=== PATIENT | female | born 1970 | race Two or more races ===

== ENCOUNTER 2021-02-06 11:03 | Outpatient (REF) | payer OTHER, SELFPAY ==
[2021-02-06 11:53] LABS: Basophils Absolute Auto 0.1 X10*3/uL (0.0-0.2); Basophils Percent Auto 1.2 % (0-2); Imm Gran Abs Auto 0.01 X10*3/uL (0.00-0.03); Imm Gran Pct Auto 0.2 % (0.0-0.4); Red Blood Count 5.18 X10*6/uL (4.20-5.50)
[2021-02-06 11:55] LABS: Eosinophils Absolute Auto 0.1 X10*3/uL (0.0-0.4); Eosinophils Percent Auto 2.7 % (0-4); Hematocrit 34.6 % (37-47); Hemoglobin 10.3 g/dl (12.0-16.0); Lymphocytes Absolute Auto 1.9 X10*3/uL (1.2-4.9); Lymphocytes Percent Auto 36.9 % (20-40); Mean Corpuscular HGB Conc 29.8 g/dl (31.0-35.0); Mean Corpuscular Hemoglobin 19.9 pg (27.0-33.0); Mean Corpuscular Volume 66.8 fL (80-98); Mean Platelet Volume 10.6 fL (9.4-12.3); Monocytes Absolute Auto 0.4 X10*3/uL (0.1-1.2); Monocytes Percent Auto 8.3 % (2-11); Neutrophils Absolute Auto 2.6 X10*3/uL (2.0-8.3); Neutrophils Percent Auto 50.7 % (45-73); Platelet Count 329 X10*3/uL (160-400); Red Cell Distribution Width 19.8 % (11.0-16.0); White Blood Count 5.2 X10*3/uL (4.8-10.8)
[2021-02-06 12:01] LABS: MANUAL DIFF FLAG NO
[2021-02-06 12:37] LABS: Anion Gap 10 (12-20); Blood Urea Nitrogen 14 mg/dL (9-16); Calcium 9.2 mg/dL (8.4-10.2); Carbon Dioxide 27 mmol/L (22-29); Chloride 104 mmol/L (96-108); Cholesterol 215 mg/dL; Estimated Glomerular Filt Rate > 60; Glucose Fasting 93 mg/dL (60-99); HDL Cholesterol 65 mg/dL; LDL Cholesterol Calculated 137 mg/dl; Potassium 4.4 mmol/L (3.3-5.1); Sodium 137 mmol/L (135-145); Triglycerides 67 mg/dL
== END 2021-02-06 11:04 | disposition home or self-care (01) ==
LOC: HO.LAB 11:03
PROVIDERS: PCP Nurse Practitioner Family; Visit Provider Nurse Practitioner Family
DX: Z00.00 Encounter for general adult medical examination without abnormal findings (principal)
CPT/HCPCS: 36415; 80048; 80061; 85025

== ENCOUNTER → 2021-02-27 15:31 | Outpatient (BNVA) | payer OTHER, SELFPAY | PROVIDERS: PCP Nurse Practitioner Family; Visit Provider Surgery ==

== ENCOUNTER 2021-04-10 12:41 | Outpatient (REF) | payer OTHER, SELFPAY ==
[2021-04-10 12:46] VITALS: BP 137/72; PULSE 62; RESP 16; TEMP 36.4; O2SAT 97
[2021-04-10 12:47] VITALS: BMI 26.2
--- NOTE | 2021-04-10 13:19 | W.PM.OPN ---
Operative Note Operative Note Date of Service: 04/10/21 Narrative: Preop diagnosis: Scalp cyst Postop diagnosis: Scalp cyst Procedure: Excision of scalp cyst under local anesthesia Surgeon Dr. Mayur Arzate The patient is a 50-year-old female who was seen in the office because of a scalp cyst. This was about 3.3 cm in diameter. This was located at the occipital area. She understood technique of excision under local anesthesia. She was aware of the risks, benefits and alternatives. She was brought to the minor procedure room. She was placed supine. The area of the cyst was prepped and draped. Lidocaine 1% was used for local anesthesia. I infiltrated the planned line of incision using blade 15. This was carried down through the full-thickness of the skin and part of subcutaneous layer until the cyst capsule was visualized. I sharply dissected the cyst capsule off of the rest of subcutaneous layer using Metzenbaum scissors all the way posteriorly to excise the entire cyst. This was sent as specimen. I irrigated the area of excision. I closed the incision with full-thickness nylon 3 0 interrupted sutures and vertical mattress sutures for eversion. The patient tolerated procedure well. No complication noted. Estimated blood loss about 2 cc . Patient was discharged with wound care instructions and will be seen in the office for removal sutures in about 2 weeks.
[2021-04-10 13:21] VITALS: BP 126/72; PULSE 62; RESP 16; O2SAT 98
--- NOTE | 2021-04-10 13:49 | MHC.SHP ---
Pre-Procedural Eval Section B Chief Complaint: Scalp Mass Allergies: Allergies Allergy/AdvReac Type Severity Reaction Status Date / Time No Known Allergies Allergy Verified 02/27/21 15:38 Plan I have reviewed the history and physical and performed a pertinent physical examination on my patient. No changes have occurred unless specified.
== END 2021-04-10 12:42 | disposition home or self-care (01) ==
LOC: HO.MS 12:41
PROVIDERS: PCP Nurse Practitioner Family; Visit Provider Surgery
PROC: (CPT 11424; principal; 2021-04-10 13:00)
DX: L72.11 Pilar cyst (principal)
CPT/HCPCS: 11424; 88304

== ENCOUNTER → 2021-04-21 12:49 | Outpatient (BNVA) | payer OTHER, SELFPAY | PROVIDERS: PCP Nurse Practitioner Family; Referring Provider Nurse Practitioner Family; Visit Provider Surgery ==

== ENCOUNTER 2021-12-17 15:05 | Outpatient (REF) | payer OTHER, SELFPAY ==
[2021-12-18 06:55] LABS: CT PCR NOT DETECTED (Not Detect.); NG PCR NOT DETECTED (Not Detect.)
[2021-12-18 12:15] LABS: BV Int Neg Control Negative (Negative); BV Int Pos Control Positive (Positive)
== END 2021-12-17 15:06 | disposition home or self-care (01) ==
LOC: HO.LAB 15:05
PROVIDERS: PCP Internal Medicine; Visit Provider Advanced Practice Midwife
DX: N89.8 Other specified noninflammatory disorders of vagina (principal); N92.0 Excessive and frequent menstruation with regular cycle; Z20.2 Contact with and (suspected) exposure to infections with a predominantly sexual mode of transmission
CPT/HCPCS: 87480; 87491; 87510; 87591; 87660

== ENCOUNTER 2022-01-31 09:08 | Outpatient (REF) | payer OTHER, SELFPAY ==
--- NOTE | ~2022-01-31 | MM_ITS ---
EXAMINATION: MM SCREENING DIGITAL BREAST TOMOSYNTHESIS, BILATERAL CLINICAL INFORMATION: Screening. Asymptomatic. Age 51. No prior breast imaging. No known family history breast cancer. The lifetime risk of breast cancer based on the Tyrer-Cuzick Model is 8%. COMPARISON: None (current study represents initial baseline exam). TECHNIQUE: Digital breast tomosynthesis is performed in both the craniocaudal and mediolateral oblique views along with computer-aided detection (CAD). Synthesized 2D images are generated from the tomosynthesis. FINDINGS: There are scattered areas of fibroglandular density (ACR BI-RADS breast composition Category b). There are no significant masses, abnormal calcifications, or other abnormalities. The axilla and skin contours are unremarkable. MM/MM tomosynthesis screening BI IMPRESSION: No mammographic evidence of malignancy. ASSESSMENT: BI-RADS 1: Negative RECOMMENDATION: Routine annual mammography screening. This patient's information was entered into a reminder system with a target due date for their next mammogram.
[2022-01-31 10:15] LABS: MANUAL DIFF FLAG NO
[2022-01-31 11:20] LABS: Basophils Absolute Auto 0.1 X10*3/uL (0.0-0.2); Basophils Percent Auto 0.9 % (0-2); Eosinophils Absolute Auto 0.4 X10*3/uL (0.0-0.4); Eosinophils Percent Auto 6.2 % (0-4); Hematocrit 36.4 % (37.0-47.0); Hemoglobin 11.3 g/dl (12.0-16.0); Imm Gran Abs Auto 0.02 X10*3/uL (0.00-0.03); Imm Gran Pct Auto 0.4 % (0.0-0.4); Lymphocytes Absolute Auto 1.6 X10*3/uL (1.2-4.9); Lymphocytes Percent Auto 28.2 % (20-40); Mean Corpuscular Hemoglobin 25.3 pg (27.0-33.0); Mean Corpuscular Volume 81.4 fL (80.0-98.0); Mean Platelet Volume 11.4 fL (9.4-12.3); Monocytes Absolute Auto 0.5 X10*3/uL (0.1-1.2); Monocytes Percent Auto 8.3 % (2-11); Neutrophils Absolute Auto 3.2 x10*3/uL (2.0-8.3); Platelet Count 385 X10*3/uL (160-400); Red Blood Count 4.47 X10*6/uL (4.20-5.50); Red Cell Distribution Width 16.3 % (11.0-16.0); White Blood Count 5.7 X10*3/uL (4.8-10.8)
[2022-01-31 11:37] LABS: Alanine Aminotransferase 17 U/L (0-31); Albumin Level 4.1 g/dL (3.5-5.0); Alkaline Phosphatase 76 U/L (39-117); Anion Gap 9 (12-20); Aspartate Amino Transferase 23 U/L (5-31); Bilirubin Total 0.2 mg/dL (0.0-1.0); Blood Urea Nitrogen 13 mg/dL (9-16); Calcium 9.1 mg/dL (8.4-10.2); Carbon Dioxide 28 mmol/L (22-29); Chloride 106 mmol/L (96-108); Cholesterol 198 mg/dL; Estimated Glomerular Filt Rate > 60; Glucose Fasting 86 mg/dL (60-99); HDL Cholesterol 68 mg/dL; LDL Cholesterol Calculated 120 mg/dl; Sodium 138 mmol/L (135-145); Total Protein 6.8 g/dL (6.5-8.0); Triglycerides 52 mg/dL
[2022-01-31 11:57] LABS: Thyroid Stimulating Hormone 1.06 uIU/mL (0.32-4.0)
[2022-02-05 05:06] LABS: Vitamin D 25-OH, D2 <4 ng/mL; Vitamin D 25-OH, D3 14 ng/mL; Vitamin D 25-OH, Total 14 ng/mL (30-100)
== END 2022-01-31 09:09 | disposition home or self-care (01) ==
LOC: HO.MAMMO 09:08
PROVIDERS: Nurse Practitioner Family; Absent Provider Internal Medicine; PCP Internal Medicine; Referring Provider Advanced Practice Midwife; Visit Provider Nurse Practitioner Family
DX: N92.1 Excessive and frequent menstruation with irregular cycle (principal); E78.5 Hyperlipidemia, unspecified; E55.9 Vitamin D deficiency, unspecified; E78.00 Pure hypercholesterolemia, unspecified; R22.0 Localized swelling, mass and lump, head; Z12.31 Encounter for screening mammogram for malignant neoplasm of breast
CPT/HCPCS: 36415; 77063; 77067; 80053; 80061; 82306; 84443; 85025; 85027

== ENCOUNTER 2022-03-09 15:07 | Outpatient (REF) | payer OTHER, SELFPAY ==
--- NOTE | ~2022-03-09 | US_ITS ---
EXAMINATION: US PELVIS CLINICAL INFORMATION: Excessive and frequent menstruation with regular cycles COMPARISON: None TECHNIQUE: Ultrasound of the pelvis is performed using both transabdominal and transvaginal transducers along with Doppler. Transvaginal imaging is performed due to inadequate visualization transabdominally. FINDINGS: The uterus is anteverted and retroflexed and measures 12 x 4.9 x 6.3 cm in dimension. No focal uterine lesion is seen. Endometrial thickness is normal measuring 0.8 cm. There are nabothian cysts in the cervix. The largest measures 1.7 x 1.3 x 2 cm. The ovaries are normal. The right ovary measures 2.5 x 1.1 x 1.6 cm. The left ovary measures 2.9 x 1.5 x 1.7 cm. There is a small amount of fluid in the pelvis. US/US pelvic and transvaginal IMPRESSION: Normal uterus and ovaries. Nabothian cysts in the cervix.
== END 2022-03-09 15:08 | disposition home or self-care (01) ==
LOC: HO.US 15:07
PROVIDERS: PCP Internal Medicine; Visit Provider Advanced Practice Midwife
DX: N92.0 Excessive and frequent menstruation with regular cycle (principal)
CPT/HCPCS: 76830; 76856

== ENCOUNTER 2022-03-19 14:52 | Outpatient (REF) | payer OTHER, SELFPAY ==
[2022-03-25 09:36] LABS: HPV mRNA E6/E7 rflx Not Detected (Not Detected)
== END 2022-03-19 14:53 | disposition home or self-care (01) ==
LOC: HO.LAB 14:52
PROVIDERS: PCP Internal Medicine; Visit Provider Advanced Practice Midwife
DX: Z01.411 Encounter for gynecological examination (general) (routine) with abnormal findings (principal); Z11.51 Encounter for screening for human papillomavirus (HPV); N76.0 Acute vaginitis; B96.89 Other specified bacterial agents as the cause of diseases classified elsewhere
CPT/HCPCS: 81025; 87624; 88142

== ENCOUNTER → 2022-04-01 14:53 | Outpatient (BNVA) | payer OTHER, SELFPAY | PROVIDERS: PCP Internal Medicine; Visit Provider Advanced Practice Midwife | DX: N92.0 Excessive and frequent menstruation with regular cycle (principal) | CPT/HCPCS: 81025 ==

== ENCOUNTER 2022-05-23 08:00 | Outpatient (REF) | payer OTHER, SELFPAY ==
[2022-05-23 08:12] LABS: MANUAL DIFF FLAG NO
[2022-05-23 08:36] LABS: Basophils Absolute Auto 0.1 X10*3/uL (0.0-0.2); Basophils Percent Auto 0.9 % (0-2); Eosinophils Absolute Auto 0.4 X10*3/uL (0.0-0.4); Eosinophils Percent Auto 7.5 % (0-4); Hematocrit 35.7 % (37.0-47.0); Hemoglobin 11.3 g/dl (12.0-16.0); Imm Gran Abs Auto 0.02 X10*3/uL (0.00-0.03); Imm Gran Pct Auto 0.4 % (0.0-0.4); Lymphocytes Absolute Auto 1.5 X10*3/uL (1.2-4.9); Lymphocytes Percent Auto 28.5 % (20-40); Mean Corpuscular HGB Conc 31.7 g/dl (31.0-35.0); Mean Corpuscular Hemoglobin 23.7 pg (27.0-33.0); Mean Platelet Volume 10.8 fL (9.4-12.3); Monocytes Absolute Auto 0.5 X10*3/uL (0.1-1.2); Monocytes Percent Auto 9.1 % (2-11); Neutrophils Absolute Auto 2.9 x10*3/uL (2.0-8.3); Neutrophils Percent Auto 53.6 % (45-73); Platelet Count 362 X10*3/uL (160-400); Red Blood Count 4.76 X10*6/uL (4.20-5.50); Red Cell Distribution Width 19.4 % (11.0-16.0); White Blood Count 5.4 X10*3/uL (4.8-10.8)
[2022-05-23 08:56] LABS: Prothrombin Time 10.9 SEC (9.9-13.0)
[2022-05-23 09:20] LABS: Alanine Aminotransferase 16 U/L (0-31); Albumin Level 4.1 g/dL (3.5-5.0); Alkaline Phosphatase 65 U/L (39-117); Anion Gap 10 (12-20); Aspartate Amino Transferase 18 U/L (5-31); Bilirubin Total 0.3 mg/dL (0.0-1.0); Blood Urea Nitrogen 10 mg/dL (9-16); Calcium 9.3 mg/dL (8.4-10.2); Carbon Dioxide 28 mmol/L (22-29); Chloride 105 mmol/L (96-108); Cholesterol 232 mg/dL; Estimated Glomerular Filt Rate > 60; Glucose Fasting 96 mg/dL (60-99); HDL Cholesterol 65 mg/dL; LDL Cholesterol Calculated 144 mg/dl; Potassium 4.8 mmol/L (3.3-5.1); Sodium 138 mmol/L (135-145); Triglycerides 115 mg/dL
[2022-05-23 09:41] LABS: Free T4 (Free Thyroxine) 0.88 ng/dL (0.71-1.85); Thyroid Stimulating Hormone 1.92 uIU/mL (0.32-4.0)
[2022-05-23 10:22] LABS: Estimated Average Glucose 103 mg/dL; Hemoglobin A1C 100.5353 umol/L; Hemoglobin A1c % 5.2 %
== END 2022-05-23 08:01 | disposition home or self-care (01) ==
LOC: HO.LAB 08:00
PROVIDERS: PCP Internal Medicine; Visit Provider Internal Medicine
DX: Z00.00 Encounter for general adult medical examination without abnormal findings (principal); E78.5 Hyperlipidemia, unspecified; N92.1 Excessive and frequent menstruation with irregular cycle
CPT/HCPCS: 36415; 80053; 80061; 83036; 84439; 84443; 85025; 85610

== ENCOUNTER → 2022-05-27 11:57 | Outpatient (REF) | payer OTHER, SELFPAY ==
--- NOTE | 2022-05-27 12:03 | ECG_ITS ---
Test Reason : z01.818 preop Blood Pressure : / mmHG Vent. Rate : 062 BPM Atrial Rate : 062 BPM P-R Int : 116 ms QRS Dur : 084 ms QT Int : 402 ms P-R-T Axes : 051 047 031 degrees QTc Int : 408 ms Normal sinus rhythm Cannot rule out Anterior infarct , age undetermined - could be from body habitus and lead placement Otherwise normal ECG No previous ECGs available Referred By: Hedy Barker Electronically Signed By:ANNE-MARIE NG
== END ==
LOC: HO.CARD 11:57
PROVIDERS: PCP Internal Medicine; Visit Provider Nurse Practitioner Family
DX: Z01.818 Encounter for other preprocedural examination (principal)
CPT/HCPCS: 93005

== ENCOUNTER → 2022-05-28 12:52 | Outpatient (REF) | payer OTHER, SELFPAY ==
--- NOTE | 2022-05-28 12:57 | ECG_ITS ---
Test Reason : PREOP Blood Pressure : / mmHG Vent. Rate : 065 BPM Atrial Rate : 065 BPM P-R Int : 124 ms QRS Dur : 088 ms QT Int : 398 ms P-R-T Axes : 058 052 032 degrees QTc Int : 413 ms Normal sinus rhythm Normal ECG When compared with ECG of 27-MAY-2022 12:03, No significant change was found Referred By: Hedy Barker Electronically Signed By:ANNE-MARIE NG
== END ==
LOC: HO.CARD 12:52
PROVIDERS: Visit Provider Nurse Practitioner Family
DX: Z01.818 Encounter for other preprocedural examination (principal)
CPT/HCPCS: 93005

== ENCOUNTER 2023-03-23 08:48 | Outpatient (REF) | payer OTHER, SELFPAY | END 2023-03-23 08:49 | disposition home or self-care (01) | LOC: HO.LNP 08:48 | PROVIDERS: PCP Internal Medicine; Visit Provider Advanced Practice Midwife | DX: Z13.89 Encounter for screening for other disorder (principal) ==

== ENCOUNTER 2023-03-23 09:12 | Outpatient (REF) | payer OTHER, SELFPAY ==
[2023-03-23 14:44] LABS: CT PCR NOT DETECTED (Not Detect.); NG PCR NOT DETECTED (Not Detect.)
[2023-03-24 09:55] LABS: BV Int Neg Control Negative (Negative); BV Int Pos Control Positive (Positive)
== END 2023-03-23 09:13 | disposition home or self-care (01) ==
LOC: HO.LAB 09:12
PROVIDERS: Visit Provider Advanced Practice Midwife
DX: N89.8 Other specified noninflammatory disorders of vagina (principal); Z20.2 Contact with and (suspected) exposure to infections with a predominantly sexual mode of transmission
CPT/HCPCS: 0353U; 87480; 87510; 87660

== ENCOUNTER 2023-05-08 08:06 | Outpatient (REF) | payer OTHER, SELFPAY ==
--- NOTE | ~2023-05-08 | MM_ITS ---
EXAMINATION: MM SCREENING DIGITAL BREAST TOMOSYNTHESIS, BILATERAL CLINICAL INFORMATION: Screening. Asymptomatic. The lifetime risk of breast cancer based on the Tyrer-Cuzick Model is 8%. COMPARISON: Mammography: 01/31/2022 (baseline) TECHNIQUE: Digital breast tomosynthesis is performed in both the craniocaudal and mediolateral oblique views along with computer-aided detection (CAD). Synthesized 2D images are generated from the tomosynthesis. FINDINGS: There are scattered areas of fibroglandular density (ACR BI-RADS breast composition Category b). The breasts are symmetrically smaller suggesting systemic weight loss from prior imaging. The breasts demonstrate no architectural abnormality or abnormal calcifications. The axilla and skin contours are unremarkable. Right breast has nodular asymmetric density posterior central 5:00 position near posterior film margin medial to posterior nipple line 7.5 cm from nipple. Patient will be recalled for additional imaging. MM/MM tomosynthesis screening BI IMPRESSION: Right: -Asymmetric density posterocentral breast just medial and inferior to posterior nipple line, 7.5 cm from nipple. Left: - No mammographic evidence of malignancy. ASSESSMENT: BI-RADS 0: Incomplete - Need Additional Imaging Evaluation RECOMMENDATION: 1. Additional views right breast: Spot CC, spot MLO. 2. Targeted ultrasound if warranted after review of the additional views. 3. Radiology department staff will contact the patient for additional imaging. This patient's information was entered into a reminder system with a target due date for their next mammogram.
== END 2023-05-08 08:07 | disposition home or self-care (01) ==
LOC: HO.MAMMO 08:06
PROVIDERS: PCP Internal Medicine; Visit Provider Internal Medicine
DX: Z12.31 Encounter for screening mammogram for malignant neoplasm of breast (principal)
CPT/HCPCS: 77063; 77067

== ENCOUNTER 2023-05-12 07:49 | Outpatient (REF) | payer OTHER, SELFPAY ==
--- NOTE | ~2023-05-12 | MM_ITS ---
EXAMINATION: MM DIAGNOSTIC DIGITAL BREAST TOMOSYNTHESIS, RIGHT CLINICAL INFORMATION: Recall from screening for asymmetric density posterior central right breast. Bilateral mastopexy since prior imaging 2021. COMPARISON: Mammography: 05/08/2023, 01/31/2022 (baseline). TECHNIQUE: Digital breast tomosynthesis is performed. 2D images are generated from the tomosynthesis. The following views are obtained: Spot CC, spot MLO x2. FINDINGS: There are scattered areas of fibroglandular density (ACR BI-RADS breast composition Category b). Additional views demonstrate stromal changes from 2021 which are consistent with the mastopexy. There is no significant mass or suspicious architectural change. A follow-up right mammography in 6 months will be requested to allow for reassessment and exclude remote possibility of an occult developing density. Results are discussed with the patient at time of visit. MM/MM tomosynthesis added views R IMPRESSION: Additional views demonstrate postsurgical changes consistent with the mastopexy. A follow-up right mammography in 6 months will be requested to allow for reassessment and exclude remote possibility of an occult developing density. ASSESSMENT: BI-RADS 3: Probably Benign RECOMMENDATION: Diagnostic right mammography in 6 months. This patient's information was entered into a reminder system with a target due date for their next mammogram.
== END 2023-05-12 07:50 | disposition home or self-care (01) ==
LOC: HO.MAMMO 07:49
PROVIDERS: PCP Internal Medicine; Visit Provider Internal Medicine
DX: R92.2 Inconclusive mammogram (principal)
CPT/HCPCS: 77061; 77065

== ENCOUNTER 2023-05-19 09:32 | Outpatient (REF) | payer OTHER, SELFPAY | END 2023-05-19 09:33 | disposition home or self-care (01) | LOC: HO.LNP 09:32 | PROVIDERS: PCP Internal Medicine; Visit Provider Obstetrics & Gynecology | DX: N93.9 Abnormal uterine and vaginal bleeding, unspecified (principal); Z32.02 Encounter for pregnancy test, result negative | CPT/HCPCS: 58100; 81025; 88305 ==

== ENCOUNTER 2023-06-08 13:41 | Outpatient (AMB) | payer OTHER, SELFPAY ==
--- NOTE | 2023-06-08 13:44 | MHC.OFFVIS ---
Intake Vital Signs 06/08/23 13:53 Height 4 ft 11 in Weight 125 lb 10.616 oz BMI 25.4 BP 116/74 Intake Visit Reasons: Pre op for Hyst D&C/130 arrival Product Development Consultant Required: Yes Product Development Consultant Language: Religious Educator Name: Kassi VEGA Information Interpreted: non-clinical & clinical Construction Assistant: Construction Assistant Present Accompanied by: Self / Same As Patient Allergies No Known Allergies Allergy (Verified 06/08/23 13:54) Is last menstrual period known: Yes Last menstrual period: 09/26/20 Post menopausal: No Patient : No Do you need a note to return to daycare/school/sports/work: Yes (for surgery on wednesday) HPI HPI Comments History of Present Illness Details Presenting for follow-up doing well with no complaints. The pathology on endometrial biopsy showed the following: Endometrium, biopsy:? Benign weakly proliferative endometrium with chronic endometritis and breakdown, and fragments suggestive of benign endometrial polyps; no atypia or carcinoma.? Comment:? Polyps may cause chronic endometritis. FOR[facility]LY [facility], [facility] Medical History Abnormal menses Head lump Hypovitaminosis D Iron deficiency anemia Physical exam Pure hypercholesterolemia Scalp mass Surgical History History of section History of removal of cyst Family History Father ETOH abuse Amputation of leg Diabetes Substance use disorder Mother Myocardial infarction Stroke Heart valve replaced Brother Thyroiditis Son In good health Son In good health Son In good health Paternal Uncle Breast cancer Social History Housing: House Alcohol intake: current Alcohol intake frequency: a few times a month Alcohol type: wine and hard liquor Patient Tobacco Use Status: Former Tobacco user Tobacco use type: Cigarette e-Cigarette/Vaping Use: Never Used Second Hand Smoke Exposure: No Patient : No service: No Current occupational status: employed Current occupational exposures/hazards: No Cognitive needs: No Hearing needs: No Vision needs: No Female Reproductive History Menstrual Date of last menstrual period: 09/26/20 Total pregnancies: 2 Full term: 2 Review of Systems Card Reports as per HPI and Reports no additional complaints Resp Reports as per HPI and Reports no additional complaints GI Reports as per HPI and Reports no additional complaints Reports as per HPI Physical Exam Vital Signs: Last Vital Signs BP 116/74 06/08/23 13:53 BMI result Body Mass Index 25.4 Const General: cooperative, healthy appearing and comfortable Chest Chest palpation & inspection: normal inspection of the chest and normal palpation of entire chest wall Breast/axilla inspection: normal inspection of the breasts and normal inspection of the axillae Breast/axilla palpation: normal palpation of the breasts, normal palpation of the axillae and no axillary lymphadenopathy Resp Effort & Inspection: normal respiratory effort Auscultation: clear to auscultation bilaterally Percussion: percussion normal Cardio Palpation: normal PMI Rate: regular rate Rhythm: regular rhythm Heart sounds: no murmurs and no rubs Peripheral pulses: Peripheral pulses 2+ throughout GI Inspection: Yes normal to inspection Palpation (GI): Soft to palpation, nontender, no guarding, not rigid and No hepatosplenomegaly present Percussion: Yes normal to percussion Auscultation: normal bowel sounds Rectal Exam - Female: deferred Assessment & Plan Assessment & Plan (1) Abnormal uterine bleeding: Comment: Endometrial polyp on EMB pathology Code(s): N93.9 - Abnormal uterine and vaginal bleeding, unspecified Plan: Discussed with the patient the results the EMB pathology showing endometrial polyp. Recommended hysteroscopy D&C possible polypectomy/myomectomy. Discussed with the patient the procedure , all benefits and risks including but not limited to inability to complete the procedure , bleeding, infection, possible need for blood transfusion with all its risk ( HIV,syphilis, Hepatitis, anaphylaxis shock, others..), injury to bladder, rectum, possible need for laparoscopy/laparotomy or hysterectomy. The patient verbalized understanding and signed the consent. Instructions given the patient to schedule a 2 week postoperative appointment Coding Level of Care Code Est Pt Level 3 (14538) Diagnoses Abnormal uterine bleeding N93.9
[2023-06-08 13:53] VITALS: BP 116/74; BMI 25.4
== END 2023-06-08 14:08 | disposition home or self-care (01) ==
LOC: HO.HWS 13:41
PROVIDERS: PCP Internal Medicine; Visit Provider Obstetrics & Gynecology
DX: N93.9 Abnormal uterine and vaginal bleeding, unspecified (principal)
CPT/HCPCS: 99213

== ENCOUNTER → 2023-06-08 13:41 | Outpatient (BNVA) | payer OTHER, SELFPAY | PROVIDERS: PCP Internal Medicine; Visit Provider Obstetrics & Gynecology ==

== ENCOUNTER → 2023-07-09 10:30 | Day surgery (SDC) | payer OTHER, SELFPAY ==
[2023-06-22 10:40] VITALS: BMI 25.4
--- NOTE | 2023-06-24 10:57 | P.CONAN_ITS ---
Documented by User: Eugenia Polanco NP 07/05/23 11:52 HPI - Anesthesia Eval Consult details Narrative: 52yo F for D&C Hysteroscopy,poss myomectomy/polypectomy, 07/09/23 [facility] Active Problems Active Problems: All Active Problems (Updated 06/08/23 @ 13:57 by Aram Beasley MD) Abnormal uterine bleeding (Acute) Urinary tract infection (Acute) Overweight (BMI 25.0-29.9) (Acute) Asthma (Acute) Pre-op evaluation (Acute) Physical exam (Acute) Encounter for annual routine gynecological examination (Acute) Bacterial vaginosis (Acute) Encounter to discuss test results (Acute) Hypovitaminosis D (Acute) Abnormal menses (Acute) Pure hypercholesterolemia (Acute) Iron deficiency anemia (Acute) Scalp mass (Acute) Head lump (Acute) Annual physical exam (Acute) Past Medical History Medical History Abnormal menses Head lump Hypovitaminosis D Iron deficiency anemia Physical exam Pure hypercholesterolemia Scalp mass Family History Family History Father ETOH abuse Amputation of leg Diabetes Substance use disorder Mother Myocardial infarction Stroke Heart valve replaced Brother Thyroiditis Son In good health Son In good health Son In good health Paternal Uncle Breast cancer Surgical History Surgical History History of section History of removal of cyst Social History Social History Housing: House Alcohol intake: current Alcohol intake frequency: does not drink Alcohol type: wine and hard liquor Patient Tobacco Use Status: Former Tobacco user Tobacco use type: Cigarette e-Cigarette/Vaping Use: Never Used Second Hand Smoke Exposure: No Use of substances other than those prescribed or required for medical reasons: No Are you DNR?: No Advance Directives: No Advance Directives Information Provided: Yes Advance Directives on File: No service: No Current occupational status: employed Current occupational exposures/hazards: No Cognitive needs: No Hearing needs: No Vision needs: No Meds Allergies Allergy/AdvReac Type Severity Reaction Status Date / Time No Known Allergies Allergy Verified 06/08/23 13:54 Exam Exam Date and Time: June 24, 2023 1057 Height,Weight and Vital Signs: Height 4 ft 11 in Weight 57 kg Assessment and Plan Assessment Anesthesia Assessment: Chart Reviewed Documented by User: Jinny Cobos MD 07/09/23 12:18 [facility] Active Problems Active Problems: All Active Problems (Updated 07/09/23 @ 10:36 by Jinny Cobos MD) Abnormal uterine bleeding (Acute) Urinary tract infection (Acute) Overweight (BMI 25.0-29.9) (Acute) Asthma (Acute) Pre-op evaluation (Acute) Physical exam (Acute) Encounter for annual routine gynecological examination (Acute) Bacterial vaginosis (Acute) Encounter to discuss test results (Acute) Hypovitaminosis D (Acute) Abnormal menses (Acute) Pure hypercholesterolemia (Acute) Iron deficiency anemia (Acute) Scalp mass (Acute) Head lump (Acute) Annual physical exam (Acute) Past Medical History Medical History Abnormal menses Head lump Hypovitaminosis D Iron deficiency anemia Physical exam Pure hypercholesterolemia Scalp mass Family History Family History Father ETOH abuse Amputation of leg Diabetes Substance use disorder Mother Myocardial infarction Stroke Heart valve replaced Brother Thyroiditis Son In good health Son In good health Son In good health Paternal Uncle Breast cancer Family history of problems with anesthesia: No Surgical History Surgical History History of section History of removal of cyst History of Problems with Anesthesia: No Social History Social History Housing: House Alcohol intake: current Alcohol intake frequency: does not drink Alcohol type: wine and hard liquor Patient Tobacco Use Status: Former Tobacco user Tobacco use type: Cigarette e-Cigarette/Vaping Use: Never Used Second Hand Smoke Exposure: No Use of substances other than those prescribed or required for medical reasons: No Are you DNR?: No Advance Directives: No Advance Directives Information Provided: Yes Advance Directives on File: No service: No Current occupational status: employed Current occupational exposures/hazards: No Cognitive needs: No Hearing needs: No Vision needs: No Meds Allergies Allergy/AdvReac Type Severity Reaction Status Date / Time No Known Allergies Allergy Verified 06/08/23 13:54 Exam Height,Weight and Vital Signs: Height 4 ft 11 in Weight 57 kg Vital Signs Temp Pulse Resp BP Pulse Ox O2 Del Method 07/09/23 11:08 98.9 F 73 16 108/65 99 Room Air Pertinent Lab Results Pertinent Lab Results: Lab Results 07/09/23 Range/Units 10:40 Urine Test NEGATIVE (NEGATIVE) Narrative Narrative: Patient a little fidgety. Was drinking water in waiting area approx. 40z @ 10:35am.States son told her to keep drinking as needed to produce urine sample. Explained complicatons of continuing to eat or drink edward-op. Patient also asking why she needs General anesthesia. Explained to her that case was booked as such by Dr Beasley and she could talk to Dr Beasley regarding if case could be done with local or MAC but she declined to do that and stated that GA was fine if booked by Dr Beasley. Airway Mallampati Class: I TM Dist: >3cm Neck ROM: Full Loose/Missing/Broken Teeth: No (Denies broken, loose teeth) Heart: RRR Lungs: CTAB Assessment and Plan Assessment Anesthesia Assessment: Anesthesia Plan Discussed Final Anesthetic Review Family History of Problems with Anesthesia: No History of Problems with Anesthesia: No NPO: No (4oz water in waiting area) ASA Class: II Final Preanesthetic Review: No Changes in Pt Med Stat, Meds/Allgs Chart Reviewed, Consent Obtained/Reviewed and Anes Risks/Benef Reviewed Patient Risk: Intermediate Procedure Risk: Low Assessment/Block/Sedation in SS: Assess/Block/Sedation-SS Anesthetic Plan Anesthetic Plan: GA Disposition: Standard PACU
[2023-07-09 10:57] LABS: Urine Pregnancy NEGATIVE (NEGATIVE)
[2023-07-09 10:58] LABS: UPreg QC Valid YES
[2023-07-09 11:08] VITALS: BP 108/65; PULSE 73; RESP 16; TEMP 37.2; O2SAT 99
[2023-07-09] MEDS: Lactated Ringers 1,000 ML 100 ML IVCONT (11:15)
--- NOTE | 2023-07-09 11:18 | MHC.SHP ---
Pre-Procedural Eval Section A Date of Service: 07/09/23 The patient is an INPATIENT: No Changes since office visit: No Cold of Flu in the past 2 weeks, No New Medical Problems, No Changes in Medication and No Patient answered all questions The History & Physical has been completed within 30 days and I have reviewed it.: Yes Section B Chief Complaint: Abnormal uterine and vaginal bleeding, unspecified Allergies: Allergies Allergy/AdvReac Type Severity Reaction Status Date / Time No Known Allergies Allergy Verified 06/08/23 13:54 Plan Diagnosis/Plan: Unchanged I have reviewed the history and physical and performed a pertinent physical examination on my patient. No changes have occurred unless specified. Time Spent With Patient Time: Total time managing care of this patient today ____ minutes.
[2023-07-09] MEDS: Metoclopramide HCl 10 MG/2 ML VIAL IVPUSH (11:26)
--- NOTE | 2023-07-09 11:53 | PC.NURSE ---
patient asked to use the bathroom and upon return to bed 2 patient states I don't want to do this, i want to go . patient encouraged to stay but refuses, took tele monitor off and requesting IV to be removed, closed curtain and got dressed. IV removed by Elsy Chavez FAMILY MEMBER CARETAKER. Dr. Beasley aware.
== END ==
PROVIDERS: Nurse Practitioner; PCP Internal Medicine; Visit Provider Obstetrics & Gynecology
DX: N93.9 Abnormal uterine and vaginal bleeding, unspecified (principal); Z53.20 Procedure and treatment not carried out because of patient's decision for unspecified reasons
CPT/HCPCS: 81025; J1100; J2250; J2405; J2765

== ENCOUNTER 2023-07-14 10:00 | Outpatient (AMB) | payer OTHER, SELFPAY ==
--- NOTE | 2023-07-14 10:01 | A.OFFVIS_ITS ---
Intake Intake Visit Reasons: follow up Organic Gardening Teacher Required: Yes Organic Gardening Teacher Language: Print Shop Manager Name: Kassi Hoyt Allergies No Known Allergies Allergy (Verified 07/14/23 10:03) HPI HPI Comments History of Present Illness Details Presenting for follow-up, the patient was scheduled for hysteroscopy D& C, possible polypectomy/myomectomy and got anxious and decided to leave without proceeding with the procedure. Last endometrial biopsy pathology showed the following: The pathology on endometrial biopsy showed the following: Endometrium, biopsy:? Benign weakly proliferative endometrium with chronic endometritis and breakdown, and fragments suggestive of benign endometrial polyps; no atypia or carcinoma.? Comment:? Polyps may cause chronic endometritis. ? PFSH Medical History Abnormal menses Head lump Hypovitaminosis D Iron deficiency anemia Physical exam Pure hypercholesterolemia Scalp mass Surgical History History of section History of removal of cyst Family History Father ETOH abuse Amputation of leg Diabetes Substance use disorder Mother Myocardial infarction Stroke Heart valve replaced Brother Thyroiditis Son In good health Son In good health Son In good health Paternal Uncle Breast cancer Social History Housing: House Alcohol intake: current Alcohol intake frequency: does not drink Alcohol type: wine and hard liquor Patient Tobacco Use Status: Former Tobacco user Tobacco use type: Cigarette e-Cigarette/Vaping Use: Never Used Second Hand Smoke Exposure: No service: No Current occupational status: employed Current occupational exposures/hazards: No Cognitive needs: No Hearing needs: No Vision needs: No Review of Systems Const All systems reviewed & are unremarkable except as noted in HPI and below Reports as per HPI and Reports no additional complaints GI Reports no additional complaints Reports no additional complaints Assessment & Plan Assessment & Plan (1) Abnormal uterine bleeding: Comment: Endometrial polyp on EMB pathology Code(s): N93.9 - Abnormal uterine and vaginal bleeding, unspecified Plan: Discussed with the patient again the results the pathology showing endometrial polyp, recommended hysteroscopy D&C possible polypectomy/myomectomy. The patient has question regarding anesthesia will set up anaesthesia preoperative consult the preop visit. All questions answered, the patient verbalized understanding. The Communication with the patient was through Kassi Hoyt MA, certified cloth winder machine operator. I spent a total of 20 minutes reviewing the chart, talking to the patient via video and documenting in the medical record. Telehealth Telehealth Location of provider rendering services: practice address Location of patient: address on file Patient Identification confirmed using: Name, : Yes Telehealth method: video Patient verbally consented to treatment: Yes Patient verbally consented to billing insurance company: Yes Patient informed of any privacy concerns related to visit: Yes Coding Level of Care Code Tele Est Pt Level 1 (91466) Diagnoses Abnormal uterine bleeding N93.9
== END 2023-07-14 12:08 | disposition home or self-care (01) ==
LOC: HO.HWS 10:01
PROVIDERS: PCP Internal Medicine; Visit Provider Obstetrics & Gynecology
DX: N93.9 Abnormal uterine and vaginal bleeding, unspecified (principal)
CPT/HCPCS: 99211

== ENCOUNTER → 2023-07-14 10:00 | Outpatient (BNVA) | payer OTHER, SELFPAY | PROVIDERS: PCP Internal Medicine; Visit Provider Obstetrics & Gynecology ==

== ENCOUNTER 2023-08-06 08:02 | Day surgery (SDC) | payer OTHER, MEDICAID, SELFPAY ==
[2023-07-26 10:20] VITALS: BP 119/65; PULSE 71; RESP 16; O2SAT 99; BMI 25.6
--- NOTE | 2023-07-26 10:28 | HO.ANESPROP2 ---
Documented by User: Eugenia Polanco NP 08/04/23 14:07 HPI - Anesthesia Eval Consult details Narrative: 52yo F for D&C Hysteroscopy, poss myomectomy/ polypectomy, 08/06/23 Pt previously cancelled self DOS d/t anxiety r/t anesthesia. Education and reassurance with in person environmental field professional at [facility] with patient verbalizing understanding and decrease anxiety. Asthma Stable without any inhaler use PONV only after C section. No PONV after plastics surgery 2021 [facility] Active Problems Active Problems: All Active Problems (Updated 07/26/23 @ 10:18 by Elvie Graff RN) Annual physical exam (Acute) Encounter to discuss test results (Acute) Bacterial vaginosis (Acute) Encounter for annual routine gynecological examination (Acute) Pre-op evaluation (Acute) Asthma (Acute) Overweight (BMI 25.0-29.9) (Acute) Urinary tract infection (Acute) Abnormal uterine bleeding (Acute) Physical exam (Acute) Hypovitaminosis D (Acute) Abnormal menses (Acute) Pure hypercholesterolemia (Acute) Iron deficiency anemia (Acute) Scalp mass (Acute) Head lump (Acute) Past Medical History Medical History Post-operative nausea and vomiting Asthma Murmur Physical exam Hypovitaminosis D Abnormal menses Pure hypercholesterolemia Iron deficiency anemia Scalp mass Head lump Family History Family History Father ETOH abuse Amputation of leg Diabetes Substance use disorder Mother Myocardial infarction Stroke Heart valve replaced Brother Thyroiditis Son In good health Son In good health Son In good health Paternal Uncle Breast cancer Family history of problems with anesthesia: No Surgical History Surgical History Hx of abdominoplasty History of removal of cyst History of section History of Problems with Anesthesia: No Social History Social History Housing: House Are you a primary intensive care unit nurse to a significant other at home: No Do you presently have visiting nurse or other home services: No Alcohol intake: current Alcohol intake frequency: does not drink Alcohol type: wine and hard liquor Patient Tobacco Use Status: Former Tobacco user Quit Date: age 20 Tobacco use type: Cigarette e-Cigarette/Vaping Use: Never Used Second Hand Smoke Exposure: No Use of substances other than those prescribed or required for medical reasons: No Have you been hit, kicked, punched, or otherwise hurt by someone within the past year? If so, by whom?: No Are you DNR?: No Advance Directives: No Advance Directives Information Provided: Yes (brochure given) Advance Directives on File: No Recently lost weight without trying: No Eating poorly because of decreased appetite: No Nutrition Risks: No Nutritional Risk Patient : No FDLMP: 07/16/23 : No Poor oral hygiene: No (10 upper front and 10 lower front teeth veneers) service: No Current occupational status: employed Current occupational exposures/hazards: No Cognitive needs: No Hearing needs: No Vision needs: No Meds Allergies Allergy/AdvReac Type Severity Reaction Status Date / Time No Known Allergies Allergy Verified 07/14/23 10:03 Home Medications Medication Instructions Recorded Confirmed Last Taken Type magnesium oxide 800 mg PO DAILY 07/26/23 07/26/23 Unknown History Exam Exam Date and Time: July 26, 2023 1028 Height,Weight and Vital Signs: Height 4 ft 11 in Weight 57.606 kg Last Vital Signs Pulse 71 07/26/23 10:20 Resp 16 07/26/23 10:20 BP 119/65 07/26/23 10:20 Pulse Ox 99 07/26/23 10:20 O2 Del Method Room Air 07/26/23 10:20 Airway Loose/Missing/Broken Teeth: Yes (Veneers top front 10 and bottom front 10) Heart: RRR Lungs: CTAB Assessment and Plan Assessment Anesthesia Assessment: Anesthesia Plan Discussed and PAT Visit Final Anesthetic Review Family History of Problems with Anesthesia: No History of Problems with Anesthesia: No Documented by User: Rossy Giron MD 08/06/23 08:18 PMFSH Past Medical History Medical History Post-operative nausea and vomiting Asthma Murmur Physical exam Hypovitaminosis D Abnormal menses Pure hypercholesterolemia Iron deficiency anemia Scalp mass Head lump Family History Family History Father ETOH abuse Amputation of leg Diabetes Substance use disorder Mother Myocardial infarction Stroke Heart valve replaced Brother Thyroiditis Son In good health Son In good health Son In good health Paternal Uncle Breast cancer Surgical History Surgical History Hx of abdominoplasty History of removal of cyst History of section Social History Social History Housing: House Are you a primary intensive care unit nurse to a significant other at home: No Do you presently have visiting nurse or other home services: No Alcohol intake: current Alcohol intake frequency: does not drink Alcohol type: wine and hard liquor Patient Tobacco Use Status: Former Tobacco user Quit Date: age 20 Tobacco use type: Cigarette e-Cigarette/Vaping Use: Never Used Second Hand Smoke Exposure: No Use of substances other than those prescribed or required for medical reasons: No Have you been hit, kicked, punched, or otherwise hurt by someone within the past year? If so, by whom?: No Are you DNR?: No Advance Directives: No Advance Directives Information Provided: Yes (brochure given) Advance Directives on File: No Recently lost weight without trying: No Eating poorly because of decreased appetite: No Nutrition Risks: No Nutritional Risk Patient : No FDLMP: 07/16/23 : No Poor oral hygiene: No (10 upper front and 10 lower front teeth veneers) service: No Current occupational status: employed Current occupational exposures/hazards: No Cognitive needs: No Hearing needs: No Vision needs: No Meds Allergies Allergy/AdvReac Type Severity Reaction Status Date / Time No Known Allergies Allergy Verified 07/14/23 10:03 Home Medications Medication Instructions Recorded Confirmed Last Taken Type magnesium oxide 800 mg PO DAILY 07/26/23 07/26/23 Unknown History Exam Airway Mallampati Class: II TM Dist: >3cm Neck ROM: Full Assessment and Plan Final Anesthetic Review NPO: Yes ASA Class: II Final Preanesthetic Review: No Changes in Pt Med Stat, Meds/Allgs Chart Reviewed, Consent Obtained/Reviewed and Anes Risks/Benef Reviewed Patient Risk: Low Procedure Risk: Low Anesthetic Plan Anesthetic Plan: GA Disposition: Standard PACU
[2023-08-06] VITALS (7 sets, daily range): BP systolic 107–126; BP diastolic 56–73; PULSE 60–79; RESP 15–20; TEMP 36.2–37.2; O2SAT 96–100
[2023-08-06] MEDS: Lactated Ringers 1,000 ML 100 ML IVCONT (08:30)
[2023-08-06 08:59] LABS: UPreg QC Valid YES; Urine Pregnancy NEGATIVE (NEGATIVE)
--- NOTE | 2023-08-06 08:59 | MHC.SHP ---
Pre-Procedural Eval Section A Date of Service: 08/06/23 The patient is an INPATIENT: No Changes since office visit: No Cold of Flu in the past 2 weeks, No New Medical Problems, No Changes in Medication and No Patient answered all questions The History & Physical has been completed within 30 days and I have reviewed it.: Yes Section B Chief Complaint: Abnormal uterine and vaginal bleeding, unspecified Allergies: Allergies Allergy/AdvReac Type Severity Reaction Status Date / Time No Known Allergies Allergy Verified 07/14/23 10:03 Plan Diagnosis/Plan: Unchanged I have reviewed the history and physical and performed a pertinent physical examination on my patient. No changes have occurred unless specified. Time Spent With Patient Time: Total time managing care of this patient today ____ minutes.
--- NOTE | 2023-08-06 09:50 | P.OP_ITS ---
Operative Note Operative Note Date of Service: 08/06/23 Narrative: Preop Diagnosis: Abnormal uterine bleeding, endometrial polyp on EMB pathology Operation: Diagnostic Hysteroscopy, Dilataion & Curettage Post Op Diagnosis: Normal endometrial and endocervical cavity, no evidence of pathology QBL: Minimal Anesthesia: GLMA Surgeon: Aram Beasley MD Project Account Manager: None Complication: None Pathology: Endometrial Scrapings Procedure: The patient was put in the dorsal lithotomy position, scrubbed, and draped in the usual manner. A sterile speculum was inserted in the patient's vagina. The anterior lip of the cervix was grasped with a single tooth tenaculum. The cervix was dilated up to 5 mm, then the scope was inserted in the patient's uterus. Inspection revealed normal endocervical & endometrial cavity with no evidence of pathology. The scope was taken out of the uterine cavity , then sharp curetting was carried on with no complications. At the end of the procedure, all instruments were taken out of the patient uterine and vaginal cavity. The single tooth tenaculum was removed and homeostasis was assured using pressure. The patient tolerated the procedure well and was transferred to the PACU in a stable condition.
--- NOTE | 2023-08-06 09:50 | PM.OP ---
Brief Operative Note Date of Service: 08/06/23 Pre-op diagnosis: Abnormal uterine bleeding, endometrial polyp on EMB pathology Post-op diagnosis: same (Normal endometrial cavity with no evidence pathology) Procedure: Hysteroscopy D&C Surgeon: Aram Beasley MD Anesthesia: GLMA Was an Completions Manager used for this Procedure?: No Estimated blood loss (mL): 0 Pathology: other (Endometrial Scrapping) Condition: stable Disposition: PACU
== END 2023-08-06 11:40 | disposition home or self-care (01) ==
PROVIDERS: PCP Internal Medicine; Visit Provider Obstetrics & Gynecology
PROC: 0UDB8ZZ Extraction of Endometrium, Via Natural or Artificial Opening Endoscopic (ICD-10-PCS; CPT 58558; principal; 2023-08-06 09:30)
DX: N93.9 Abnormal uterine and vaginal bleeding, unspecified (principal); N92.6 Irregular menstruation, unspecified; E55.9 Vitamin D deficiency, unspecified; D50.9 Iron deficiency anemia, unspecified; J45.909 Unspecified asthma, uncomplicated; E78.00 Pure hypercholesterolemia, unspecified; Z79.899 Other long term (current) drug therapy; Z87.891 Personal history of nicotine dependence
CPT/HCPCS: 58558; 81025; 88305; J1885; J2250; J2405; J3010

== ENCOUNTER → 2023-08-06 08:02 | Outpatient (BNV) | payer OTHER, SELFPAY | PROVIDERS: PCP Internal Medicine; Visit Provider Obstetrics & Gynecology | DX: N93.9 Abnormal uterine and vaginal bleeding, unspecified (principal) | CPT/HCPCS: 58558 ==

== ENCOUNTER 2023-08-26 14:03 | Outpatient (AMB) | payer OTHER, SELFPAY ==
--- NOTE | 2023-08-26 14:03 | MHC.OFFVIS ---
Intake Intake Visit Reasons: post op Manager Grant Required: Yes Manager Grant Language: [place] Assessor Name: Kassi VEGA Allergies No Known Allergies Allergy (Verified 07/14/23 10:03) HPI HPI Comments History of Present Illness Details The patient scheduled it tele health visit post hysteroscopy D&C no complaints minimal vaginal bleeding no feverishness chills or abdominal pain. The pathology showed the following: Early secretory endometrium with stromal breakdown; negative for atypia or malignancy The following workup was done: H&H= 11.3/35.7 TSH, hCG, GC and chlamydia were negative. Endometrial biopsy pathology showed the following: Benign weakly proliferative endometrium with chronic endometritis and breakdown, and fragments suggestive of benign endometrial polyps; no atypia or carcinoma. Comment: Polyps may cause chronic endometritis. Co testing was done in 03/20 was negative. Mammogram was done in 05/21 and was BI-RADS 3, the recommendation was to repeat in 6 month. Pelvic ultrasound was unremarkable [facility] Medical History Post-operative nausea and vomiting Asthma Murmur Physical exam Hypovitaminosis D Abnormal menses Pure hypercholesterolemia Iron deficiency anemia Scalp mass Head lump Surgical History Hx of abdominoplasty History of removal of cyst History of section Family History Father ETOH abuse Amputation of leg Diabetes Substance use disorder Mother Myocardial infarction Stroke Heart valve replaced Brother Thyroiditis Son In good health Son In good health Son In good health Paternal Uncle Breast cancer Social History Housing: House Are you a primary neonatal intensive care unit nurse to a significant other at home: No Do you presently have visiting nurse or other home services: No Alcohol intake: current Alcohol intake frequency: does not drink Alcohol type: wine and hard liquor Patient Tobacco Use Status: Former Tobacco user Quit Date: age 20 Tobacco use type: Cigarette e-Cigarette/Vaping Use: Never Used Second Hand Smoke Exposure: No service: No Current occupational status: employed Current occupational exposures/hazards: No Cognitive needs: No Hearing needs: No Vision needs: No Review of Systems Const All systems reviewed & are unremarkable except as noted in HPI and below Reports as per HPI and Reports no additional complaints GI Reports no additional complaints Reports no additional complaints Assessment & Plan Assessment & Plan (1) Abnormal uterine bleeding: Code(s): N93.9 - Abnormal uterine and vaginal bleeding, unspecified Plan: Discussed with the patient the results of the work up done and options of treatment including Lysteda, BCP's, Mirena IUD, endometrial ablation and hysterectomy. All pros, cons, risks and benefits if each option was discussed with the patient and the patient decided to think about it and get back to us. All questions answered the patient verbalized understanding. I spent a total of 20 minutes reviewing the chart, talking to the patient via phone and documenting in the medical record. The Communication with the patient was through Kassi Hoyt MA, certified aerial photograph interpreter. Telehealth Telehealth Location of provider rendering services: practice address Location of patient: address on file Patient Identification confirmed using: Name, : Yes Telehealth method: voice only Patient verbally consented to treatment: Yes Patient verbally consented to billing insurance company: Yes Patient informed of any privacy concerns related to visit: Yes Coding Level of Care Code Tele Est Pt Level 1 (58136) Diagnoses Abnormal uterine bleeding N93.9
== END 2023-08-26 14:28 | disposition home or self-care (01) ==
LOC: HO.HWS 14:03
PROVIDERS: PCP Internal Medicine; Visit Provider Obstetrics & Gynecology
DX: N93.9 Abnormal uterine and vaginal bleeding, unspecified (principal)
CPT/HCPCS: 99211

== ENCOUNTER → 2023-08-26 14:03 | Outpatient (BNVA) | payer OTHER, SELFPAY | PROVIDERS: PCP Internal Medicine; Visit Provider Obstetrics & Gynecology ==

== ENCOUNTER 2025-02-15 16:58 | Emergency (ER) | payer BC, SELFPAY ==
--- NOTE | ~2025-02-15 | CT_ITS ---
CLINICAL HISTORY: headache CT head without contrast Comparison: None Findings: No intra-axial mass, midline shift, hydrocephalus, or acute hemorrhage. No significant atrophy-like change or white matter disease. There is no sinus or mastoid fluid. The orbits are unremarkable. There is no acute fracture. IMPRESSION: 1. No acute intracranial findings. This document has been electronically signed by: Parth Joseph MD on 02/15/2025 19:12:38
[2025-02-15 17:49] VITALS: BP 137/68; PULSE 76; RESP 16; TEMP 36.6; O2SAT 99; BMI 26.3
--- NOTE | 2025-02-15 17:51 | ED.HA ---
HPI - Headache General Chief Complaint: Headache Stated Complaint: high blood pressure,headache Time Seen by Provider: 02/15/25 22:02 Source: patient Mode of arrival: ambulatory Limitations: no limitations History of Present Illness ED Provider: HPI Narrative: Patient complaining of diffuse abdominal pain with diarrhea for last 1 week also has nausea today she had a headache that brought her to the hospital CT scan done prior to my evaluation which is negative labs were done which is also negative no upper respiratory symptoms no fever no chills Related Data Home Medications ?Medication ?Instructions ?Recorded ?Confirmed magnesium oxide 800 mg PO DAILY 07/26/23 07/26/23 Previous Rx's ?Medication ?Instructions ?Recorded ferrous sulfate 325 mg (65 mg 325 mg PO BID 90 days #180 tabs 11/25/21 iron) tablet dicyclomine 20 mg tablet 20 mg PO Q6-8H PRN abdominal pain 02/15/25 #20 tabs ondansetron 4 mg disintegrating 4 mg PO Q6-8H PRN nausea and 02/15/25 tablet vomiting #7 tabs Allergies Allergy/AdvReac Type Severity Reaction Status Date / Time No Known Allergies Allergy Verified 02/15/25 17:50 Review of Systems Review of Systems: Yes all other systems are reviewed and are negative PMFSH Past Medical History Medical History Post-operative nausea and vomiting Asthma Murmur Physical exam Hypovitaminosis D Abnormal menses Pure hypercholesterolemia Iron deficiency anemia Scalp mass Head lump Surgical History Hx of abdominoplasty History of removal of cyst History of section Family History Family History Father ETOH abuse Amputation of leg Diabetes Substance use disorder Mother Myocardial infarction Stroke Heart valve replaced Brother Thyroiditis Son In good health Son In good health Son In good health Paternal Uncle Breast cancer Social History Social History Housing: House Are you a primary health care assistant to a significant other at home: No Do you presently have visiting nurse or other home services: No Alcohol intake: current Alcohol intake frequency: does not drink Alcohol type: wine and hard liquor Patient Tobacco Use Status: Former Tobacco user Tobacco use type: Cigarette e-Cigarette/Vaping Use: Never Used Second Hand Smoke Exposure: No Advance Directives: No Advance Directives Information Provided: Yes service: No Current occupational status: employed Current occupational exposures/hazards: No Cognitive needs: No Hearing needs: No Vision needs: No Physical Exam Vital Signs: Vital Signs: Last Vital Signs Temp 98.5 F 02/15/25 21:56 Pulse 77 02/15/25 21:56 Resp 16 02/15/25 21:56 BP 158/98 H 02/15/25 21:56 Pulse Ox 98 02/15/25 21:56 O2 Del Method Room Air 02/15/25 21:56 BMI result Body Mass Index 26.3 Appearance: Alert. Oriented X3. No acute distress. Eyes: No pallor or icterus ENT: Pharynx normal. Oral Mucosa moist Neck: Normal inspection. Neck supple. CVS: Normal heart rate and rhythm. Pulses normal. Respiratory: No respiratory distress. Equal air entry bilateral, no wheezing/rales/rhonchi Abdomen: Soft and mild diffuse tenderness Bowel sounds are present, no mass palpable, no CVA tenderness Skin: Skin warm and dry. Normal skin color. Normal skin turgor. Extremities: No lower extremity edema. No calf tenderness Neuro: Oriented X 3. No motor deficit. Course Course Course Narrative: This is an RME: Additional HPI, ROS, PE not included below will be deferred to primary provider. RME assessment and note performed by: Galina Bailey PA-C This is a [id number], with a hx of asthma, who presents to the ER with complaints of headache starting today. Reports nausea, no vomiting. Patient reports that she has had ?blurred vision ? Dizzy - she was ambulatory with steady gait. She is unable to really discern this. Neurologically intact. Plan: Labs, Viral swabs, CT head, further ER eval needed. Medical Decision Making Medical Decision Making [facility] Narrative: Patient's likely with viral gastroenteritis mild symptoms workup is negative will prescribe Zofran and dicyclomine for abdominal discomfort Lab Data [facility] Lab Attestation statement: I reviewed the patient's lab results. 02/15/25 18:25 02/15/25 18:25 Labs: Lab Results 02/15/25 Range/Units 18:25 WBC 8.6 (4.8-10.8) X10*3/uL RBC 5.12 (4.20-5.50) X10*6/uL Hgb 11.3 L (12.0-16.0) g/dl Hct 35.8 L (37.0-47.0) % MCV 69.9 L (80.0-98.0) fL MCH 22.1 L (27.0-33.0) pg MCHC 31.6 (31.0-35.0) g/dl RDW 19.9 H (11.0-16.0) % Plt Count 378 (160-400) X10*3/uL MPV 10.4 (9.4-12.3) fL Immature Gran % (Auto) 0.3 (0.0-0.4) % Neut % (Auto) 57.7 (45-73) % Lymph % (Auto) 17.2 L (20-40) % [place] % (Auto) 6.0 (2-11) % Eos % (Auto) 18.1 H (0-4) % Baso % (Auto) 0.7 (0-2) % Lymph # (Auto) 1.5 (1.2-4.9) X10*3/uL [place] # (Auto) 0.5 (0.1-1.2) X10*3/uL Eos # (Auto) 1.6 H (0.0-0.4) X10*3/uL Baso # (Auto) 0.1 (0.0-0.2) X10*3/uL Abs Immat Gran (auto) 0.03 (0.00-0.03) X10*3/uL Absolute Neuts (auto) 5.0 (2.0-8.3) x10*3/uL Absolute Nucleated RBC 0.000 (0.0-0.012) X10*3/uL Nucleated RBC % (auto) 0.0 (0.0-0.2) /100WBC Sodium 138 (135-145) mmol/L Potassium 4.0 (3.3-5.1) mmol/L Chloride 104 (96-108) mmol/L Carbon Dioxide 25 (22-29) mmol/L Anion Gap 13 (12-20) BUN 12 (9-16) mg/dL Creatinine 0.76 (0.5-1.4) mg/dL Estim Creat Clear Calc 67.7 Estimated GFR > 60 Random Glucose 92 (60-115) mg/dL Calcium 9.4 (8.4-10.2) mg/dL Magnesium 1.8 (1.6-2.6) mg/dL Total Bilirubin 0.2 (0.0-1.0) mg/dL Direct Bilirubin < 0.2 (0.0-0.5) mg/dL AST 27 (5-31) U/L ALT 19 (0-31) U/L Alkaline Phosphatase 67 (39-117) U/L Total Protein 8.3 H (6.5-8.0) g/dL Albumin 4.4 (3.5-5.0) g/dL Beta HCG, Quant < 2 mIU/mL Influenza Type A (PCR) NEGATIVE (Negative) Influenza Type B (PCR) NEGATIVE (Negative) RSV RNA Qual (PCR) NEGATIVE (Negative) SARS-CoV-2 RNA (RT-PCR) NEGATIVE (Negative) Independent Interpretation I performed an independent interpretation of an: CT Scan Interpretation: Negative Radiology Impression Discussion of test interpretation with radiology: I have reviewed the radiologist's reading. Discharge Plan Discharge Clinical Impression: Gastroenteritis Patient Disposition: Home, Self-Care Instructions: Gastroenteritis (ED) Additional Instructions: Drink plenty of fluids Medicine for nausea and abdominal cramps as prescribed Prescriptions: New dicyclomine 20 mg tablet 20 mg PO Q6-8H PRN (Reason: abdominal pain) Qty: 20 0RF ondansetron 4 mg tablet,disintegrating 4 mg PO Q6-8H PRN (Reason: nausea and vomiting) Qty: 7 0RF No Action magnesium oxide 400 mg magnesium Tablet 800 mg PO DAILY ferrous sulfate 325 mg (65 mg iron) tablet 325 mg PO BID 90 Days Qty: 180 0RF Print Language: Divehi
[2025-02-15 18:29] LABS: MANUAL DIFF FLAG NO
[2025-02-15 18:36] LABS: Basophils Absolute Auto 0.1 X10*3/uL (0.0-0.2); Basophils Percent Auto 0.7 % (0-2); Eosinophils Absolute Auto 1.6 X10*3/uL (0.0-0.4); Eosinophils Percent Auto 18.1 % (0-4); Hematocrit 35.8 % (37.0-47.0); Hemoglobin 11.3 g/dl (12.0-16.0); Imm Gran Abs Auto 0.03 X10*3/uL (0.00-0.03); Imm Gran Pct Auto 0.3 % (0.0-0.4); Lymphocytes Absolute Auto 1.5 X10*3/uL (1.2-4.9); Lymphocytes Percent Auto 17.2 % (20-40); Mean Corpuscular HGB Conc 31.6 g/dl (31.0-35.0); Mean Corpuscular Hemoglobin 22.1 pg (27.0-33.0); Mean Corpuscular Volume 69.9 fL (80.0-98.0); Mean Platelet Volume 10.4 fL (9.4-12.3); Monocytes Absolute Auto 0.5 X10*3/uL (0.1-1.2); Neutrophils Percent Auto 57.7 % (45-73); Platelet Count 378 X10*3/uL (160-400); Red Blood Count 5.12 X10*6/uL (4.20-5.50); Red Cell Distribution Width 19.9 % (11.0-16.0); White Blood Count 8.6 X10*3/uL (4.8-10.8)
[2025-02-15 19:00] LABS: Alanine Aminotransferase 19 U/L (0-31); Albumin Level 4.4 g/dL (3.5-5.0); Alkaline Phosphatase 67 U/L (39-117); Anion Gap 13 (12-20); Aspartate Amino Transferase 27 U/L (5-31); Bilirubin Direct < 0.2 mg/dL (0.0-0.5); Bilirubin Total 0.2 mg/dL (0.0-1.0); Blood Urea Nitrogen 12 mg/dL (9-16); Calcium 9.4 mg/dL (8.4-10.2); Carbon Dioxide 25 mmol/L (22-29); Chloride 104 mmol/L (96-108); Creatinine Clr Calc Pharmacy 67.7; Estimated Glomerular Filt Rate > 60; Glucose Random 92 mg/dL (60-115); HCG Quantitative < 2 mIU/mL; Magnesium 1.8 mg/dL (1.6-2.6); Sodium 138 mmol/L (135-145); Total Protein 8.3 g/dL (6.5-8.0)
[2025-02-15 19:08] LABS: Influenza A PCR NEGATIVE (Negative); Influenza B PCR NEGATIVE (Negative); Resp Syncy Virus RNA Qual PCR NEGATIVE (Negative); SARS COV2 PCR INHOUSE NEGATIVE (Negative)
[2025-02-15 21:56] VITALS: BP 158/98; PULSE 77; RESP 16; TEMP 36.9; O2SAT 98
[2025-02-15] MEDS: Dicyclomine HCl 10 MG CAPSULE 20 MG PO (22:51)
[2025-02-15] MEDS: Ondansetron ODT 4 MG TAB.RAPDIS TRANSLINGU (22:51)
--- NOTE | 2025-02-15 22:54 | PC.NURSE ---
Pt a&ox4, no signs of distress Pt has family at bedside Pt medicated per mar. Plan of care ongoing.
[2025-02-15 22:57] VITALS: BP 158/98; PULSE 77; RESP 16; TEMP 36.9; O2SAT 98
== END 2025-02-15 22:58 | disposition home or self-care (01) ==
PROVIDERS: Physician Assistant Medical; Emergency Provider Internal Medicine; PCP Internal Medicine
DX: K52.9 Noninfective gastroenteritis and colitis, unspecified (principal); R51.9 Headache, unspecified; Z03.818 Encounter for observation for suspected exposure to other biological agents ruled out; J45.909 Unspecified asthma, uncomplicated; D50.9 Iron deficiency anemia, unspecified; E78.00 Pure hypercholesterolemia, unspecified; N92.6 Irregular menstruation, unspecified; Z87.891 Personal history of nicotine dependence; Z79.899 Other long term (current) drug therapy
CPT/HCPCS: 0241U; 36415; 70450; 80048; 80076; 83735; 84702; 85025; 99284

== ENCOUNTER → 2025-02-15 17:56 | Outpatient (BNV) | payer BC, SELFPAY | PROVIDERS: PCP Internal Medicine; Visit Provider Radiology Diagnostic Radiology | DX: R51.9 Headache, unspecified (principal) | CPT/HCPCS: 70450 ==

== ENCOUNTER 2025-10-05 14:18 | Outpatient (AMB) | payer BC, SELFPAY ==
--- NOTE | 2025-10-05 14:20 | MHC.OFFWIV ---
Intake Vital Signs 10/05/25 14:21 Height 4 ft 11 in Weight 139 lb BMI 28.1 BP 120/82 Blood Pressure Location Lt brachial Position Sitting Pulse 83 Pulse Source Pulse Oximeter Temp 97.7 F Temp Source Oral Pulse Oximetry (%) 97 Oxygen Delivery Method Room Air Intake Visit Reasons: ep cant move head or neck Intake Note: pt presents with right neck stiffness and pain going into right shoulder and right upper back that began yesterday afternoon Patient Tobacco Use Status: Former Tobacco user Allergies No Known Allergies Allergy (Verified 10/05/25 14:25) Do you need a note to return to daycare/school/sports/work: No HPI ep cant move head or neck HPI Details 55 year old [place] with neck pain and stiffness since yesterday. She states she turned her head abruptly yesterday and immediately felt a strain on the right side of her neck. She states she cannot move her neck at all without pain. She denies any pain radiating down arm. She has tried a heating pad with minimal relief. [facility], LAT[facility] Medical History Post-operative nausea and vomiting Asthma Murmur Physical exam Hypovitaminosis D Abnormal menses Pure hypercholesterolemia Iron deficiency anemia Scalp mass Head lump Surgical History Hx of abdominoplasty History of removal of cyst History of section Family History Father ETOH abuse Amputation of leg Diabetes Substance use disorder Mother Myocardial infarction Stroke Heart valve replaced Brother Thyroiditis Son In good health Son In good health Son In good health Paternal Uncle Breast cancer Social History Housing: House Are you a primary home health care physician to a significant other at home: No Do you presently have visiting nurse or other home services: No Alcohol intake: current Alcohol intake frequency: holidays/special occasions only Alcohol type: wine and hard liquor Patient Tobacco Use Status: Former Tobacco user Tobacco use type: Cigarette e-Cigarette/Vaping Use: Never Used Second Hand Smoke Exposure: No service: No Current occupational status: employed Current occupational exposures/hazards: No Cognitive needs: No Hearing needs: No Vision needs: No Review of Systems Const All systems reviewed & are unremarkable except as noted in HPI and below Physical Exam Vital Signs: Last Vital Signs Temp 97.7 F 10/05/25 14:21 Pulse 83 10/05/25 14:21 BP 120/82 10/05/25 14:21 Pulse Ox 97 10/05/25 14:21 Oxygen Delivery Method Room Air 10/05/25 14:21 BMI result Body Mass Index 28.1 Const General: cooperative HEENT Head: Yes normal to inspection and Yes atraumatic Ears: hearing grossly normal bilaterally Face and sinus: Yes normal facial exam Neck Neck: Yes no lymphadenopathy Resp Effort & Inspection: normal respiratory effort Back/Spine/Pelvis Cervical Spine: cervical muscular tenderness (right cervical paraspinals, right SCM muscle), pain with cervical ROM and cervical ROM abnormal (minimal neck flexion/extension, side bending, lat rotation, 5-10 degrees) Skin General skin exam: no rashes or lesions noted Extrem General: Yes capillary refill normal and Yes no clubbing, cyanosis or edema Right upper extremity: normal to inspection and full ROM Left upper extremity: normal to inspection and full ROM Psych Appearance: grossly normal Mental Status: mental status grossly normal Speech and movement: Normal speech and movement present Affect: normal affect Assessment & Plan Assessment & Plan (1) Acute sprain of ligament of neck: Code(s): S13.9XXA - Sprain of joints and ligaments of unspecified parts of neck, initial encounter Qualifiers: Encounter type: initial encounter Qualified Code(s): S13.9XXA - Sprain of joints and ligaments of unspecified parts of neck, initial encounter Plan: Will start patient on short course of muscle relaxer and prednisone. We reviewed indications, use, possible side effects of medications. We also discussed conservative treatments to utilize at home, including Tylenol, lidocaine patches, gentle stretching/massage. If she does not improve with time and treatment, she can return to the clinic for further evaluation. Patient verbalizes understanding and agrees to plan. Medications: New prednisone 40 mg (2 x 20 mg) PO DAILY 10 tabs 0RF 5 days S13.9XXA - Sprain of joints and ligaments of unspecified parts of neck, initial encounter cyclobenzaprine Take one tablet at bedtime as needed for muscle pain/spasms. 10 mg PO BEDTIME PRN 5 tabs 0RF muscle spasm S13.9XXA - Sprain of joints and ligaments of unspecified parts of neck, initial encounter Coding Level of Care Code Est Pt Level 4 (71252) Diagnoses Acute sprain of ligament of neck, initial encounter S13.9XXA Encounter type: initial encounter
[2025-10-05 14:21] VITALS: BP 120/82; PULSE 83; TEMP 36.5; O2SAT 97; BMI 28.1
== END 2025-10-05 14:51 | disposition home or self-care (01) ==
PROVIDERS: PCP Internal Medicine; Visit Provider Nurse Practitioner Family
DX: S13.9XXA Sprain of joints and ligaments of unspecified parts of neck, initial encounter (principal)

== ENCOUNTER 2025-11-23 14:49 | Outpatient (AMB) | payer BC, SELFPAY ==
--- NOTE | 2025-11-23 14:56 | A.OFFPC_ITS ---
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 Transferring care from Dr Darling. Medical records have been requested and have received. Representative Government Relations Required: Yes Representative Government Relations Language: Slate Cutter Operator Name: ID: [id number] Olive Brine Tester: Not Required per policy Accompanied by: Self / Same As Patient Allergies No Known Allergies Allergy (Verified 11/23/25 14:58) Medication List - Last Reconciled 11/23/25 by Jeniffer Dan MD ascorbic acid (vitamin C) 500 mg PO DAILY ashwagandha extract mg PO cyclobenzaprine 10 mg PO BEDTIME PRN magnesium oxide 800 mg PO DAILY omega-3 fatty acids 1,000 mg PO DAILY Tobacco use date assessed: 11/23/25 Dental Screening Dental Screen Date: 11/23/25 Did you have a dental visit in the last 12 months?: Yes Did you have a dental problem in the last 6 months where you did not have access to dental care?: No Was dental information given to patient?: Patient has dentist HPI HPI Comments History of Present Illness Details Patient is a 55-year-old female with asthma and iron deficiency anemia presenting to [facility] care. Patient reports that her menstrual periods became irregular proximally 2 years ago. She also noticed hair loss. She is currently taking vitamin-C, ashwagandha, magnesium and [place] 3 supplements. She is currently not taking any iron supplements. Family history is notable for high cholesterol in her father, as well as diabetes, stroke, and heart attack. There is no family history of cancer. Socially, the patient lives with her children, denies any history of smoking, and reports drinking one alcoholic beverage every two to three weeks. [facility] Medical History Post-operative nausea and vomiting Asthma Murmur Physical exam Hypovitaminosis D Abnormal menses Pure hypercholesterolemia Iron deficiency anemia Scalp mass Head lump Surgical History Hx of abdominoplasty History of removal of cyst History of section Family History Father ETOH abuse Amputation of leg Diabetes Substance use disorder Mother Myocardial infarction Stroke Heart valve replaced Brother Thyroiditis Son In good health Son In good health Son In good health Paternal Uncle Breast cancer Social History Housing: House Are you a primary farm or ranch animal caretaker to a significant other at home: No Do you presently have visiting nurse or other home services: No Alcohol intake: current Alcohol intake frequency: holidays/special occasions only Alcohol type: wine and hard liquor Patient Tobacco Use Status: Former Tobacco user Tobacco use type: Cigarette e-Cigarette/Vaping Use: Former Use Second Hand Smoke Exposure: Yes service: No Current occupational status: employed Current occupation: Teacher Current occupational exposures/hazards: No Cognitive needs: No Hearing needs: No Vision needs: Yes (Glasses) Questionnaire PHQ-9 Over the last 2 weeks, how often have you been bothered by any of the following problems? 1. Little interest or pleasure in doing things: not at all 2. Feeling down, depressed, or hopeless: not at all 3. Trouble falling or staying asleep, or sleeping too much: several days 4. Feeling tired or having little energy: not at all 5. Poor appetite or overeating: not at all 6. Feeling bad about yourself - or that you are a failure or have let yourself or your family down: not at all 7. Trouble concentrating on things, such as reading the newspaper or watching television: not at all 8. Moving or speaking so slowly that other people could have noticed. Or the opposite - being so fidgety or restless that you have been moving around a lot more than usual: not at all 9. Thoughts that you would be better off or of hurting yourself in some way: not at all Total score: 1 Depression Screening Interpretation: Positive Depression Screening Done: Yes Source: Developed by Drs. Maik Lucia, Zayda Barone, Gary Giang and colleagues, with an educational sheela from @[employer]. Thrive Questionnaire Date Thrive assessed: 11/23/25 I am a: Patient What is your living situation today?: I have a steady place to live Within the past 12 months, did the food you bought not last and you didn't have the money to get more?: Never true Within the past 12 months, did you worry whether your food would run out before you got money to buy more?: Never true Do you have trouble paying for medicines?: No Do you have trouble getting transportation to medical appointments?: No Do you have trouble paying your heating and electricity bill?: No Do you have trouble taking care of your child, family member or friend?: No Do you have trouble with day-to-day activities such as bathing, preparing meals, shopping, managing finances, etc.?: No Are you currently unemployed and looking for a job?: No Are you interested in more education?: No Please select the resources that you would like help with: None Currently or been in a relationship where the following occur: No concerns reported THRIVE Score: 0 AUDIT C Alcohol Use Questionnaire (AUDIT-C) 1. How often do you have a drink containing alcohol?: 2-3 times a week 2. How many drinks containing alcohol do you have on a typical day when you are drinking?: 1 or 2 3. How often do you have six or more drinks on one occasion?: Never Total Score: 3 GRIS-7 AMB Questionnaire GRIS-7 Date GRIS - 7 assessed: 11/23/25 Feeling nervous, anxious, or on edge: 3 = Nearly every day Not being able to stop or control worryin = Nearly every day Worrying too much about different things: 3 = Nearly every day Trouble relaxin = More than half the days Being so restless that it is hard to sit still: 1 = Several days Becoming easily annoyed or irritable: 1 = Several days Feeling afraid as if something awful might happen: 2 = More than half the days Total GRIS-7 score (0-4 normal; 5-9 mild; 10-14 moderate; 15-21 severe): 15 Source: Developed by Drs. Maik Lucia, Zayda Barone, Gary Giang and colleagues, with an educational sheela from @[employer]. Physical exam (Primary Care) Vital Signs: Last Vital Signs Temp 96.9 F 11/23/25 14:59 BP 130/78 11/23/25 14:59 General: Well-appearing, alert, oriented ?3, in no acute distress. Cardiovascular: RRR, S1-S2 appreciated, no murmurs, rubs or gallops. Respiratory: Lungs clear to auscultation bilaterally, no wheezes, rales or rhonchi. BMI result Body Mass Index 25.7 Tobacco/Smoking Status: Tobacco use Status Tobacco use date assessed 11/23/25 11/23/25 15:15 Patient Tobacco Use Status Former Tobacco user 11/23/25 15:15 Tobacco use type Cigarette 11/23/25 15:15 e-Cigarette/Vaping Use Former Use 11/23/25 15:15 PHQ-9: PHQ-9 Score PHQ-9: Total score 1 11/23/25 15:21 Depression Screening Interpretation: Positive Thrive Assessment: Date of Thrive Assessment Date Thrive assessed 11/23/25 11/23/25 15:15 Currently or been in a relationship where the following occur: No concerns reported Office Procedures Flu Questionnaire Does the patient have a severe egg allergy?: No Does the patient have severe life threatening allergies?: No Does the patient have a fever or illness today?: No Has the patient ever had Guillain-[place] Syndrome?: No Has the patient ever had any past reaction to a flu shot?: No Immunizations Fluarix [id number] (PF) 45 mcg (15 mcg x 3)/0.5 mL IM syringe Performing Provider: Jeniffer Dan MD [facility] Administered by: Blanca Deshpande CMA on 11/23/25 15:40 Dose Route Admin Location Dispensed Lot Number Expiration Date [facility] Denial Management Representative 0.5 mL IM Left Deltoid 0.5 mL [id number] 05/28/26 [id number] [employer] MartinINE VIS Given Date VIS Provided VIS Publication Date 11/23/25 Single Vaccine 24 Eligibility Eligibility Date Funding Source Not [facility] Eligible 11/23/25 Private Coding Level of Care Code Est Pt Level 4 (95764) Diagnoses Establishing care with new doctor, encounter for Z76.89 Pure hypercholesterolemia E78.00 Hypovitaminosis D E55.9 Iron deficiency anemia, unspecified iron deficiency anemia type D50.9 Iron deficiency anemia type: unspecified iron deficiency Perimenopause N95.1 Assessment & Plan Assessment & Plan (1) Establishing care with new doctor, encounter for: Code(s): Z76.89 - Persons encountering health services in other specified circumstances Plan: Patient presenting to establish care (2) Pure hypercholesterolemia: Code(s): E78.00 - Pure hypercholesterolemia, unspecified Category: Medical Plan: Obtain lipid panel, A1c, CMP (3) Hypovitaminosis D: Code(s): E55.9 - Vitamin D deficiency, unspecified Category: Medical Plan: Obtain vitamin-D level (4) Iron deficiency anemia: Code(s): D50.9 - Iron deficiency anemia, unspecified Category: Medical Qualifiers: Iron deficiency anemia type: unspecified iron deficiency Qualified Code(s): D50.9 - Iron deficiency anemia, unspecified Plan: Obtain CBC, iron panel and ferritin (5) Perimenopause: Code(s): N95.1 - Menopausal and female climacteric states Category: Medical Plan: Patient reports irregular menses for the past 2 years. She had questions regarding checking hormone levels. She was counseled on routine hormone testing during this transition is often not beneficial. A referral to OBGYN was offered to discuss potential hormone replacement therapy, but she would like to defer at this time. Plan Flu vaccine given today. Orders: Orders IRON PROFILE Today D64.9 - Anemia, unspecified Ferritin Today D64.9 - Anemia, unspecified Influenza [id number] Immunization Today Z23 - Encounter for immunization Complete Blood Count Auto Diff Today Z00.00 - Encounter for general adult medical examination without abnormal findings Lipid Panel with Reflex Today Z13.220 - Encounter for screening for lipoid disorders Vitamin D 25-OH (D2 and D3) Today E55.9 - Vitamin D deficiency, unspecified Hemoglobin A1c Today Z13.1 - Encounter for screening for diabetes mellitus Comprehensive Met. Panel Today Z00.00 - Encounter for general adult medical examination without abnormal findings Reticulocyte Count Today D64.9 - Anemia, unspecified Medications: Discontinued prednisone Discontinued Reason: Patient no longer taking 40 mg (2 x 20 mg) PO DAILY 5 days 10 tabs 0RF S13.9XXA - Sprain of joints and ligaments of unspecified parts of neck, initial encounter
[2025-11-23 14:59] VITALS: BP 130/78; TEMP 36.1; BMI 25.7
== END 2025-11-23 15:42 | disposition home or self-care (01) ==
LOC: HO.HMCH 14:50
PROVIDERS: PCP Student in an Organized Health Care Education/Training Program; Visit Provider Student in an Organized Health Care Education/Training Program
DX: Z76.89 Persons encountering health services in other specified circumstances (principal); E78.00 Pure hypercholesterolemia, unspecified; E55.9 Vitamin D deficiency, unspecified; D50.9 Iron deficiency anemia, unspecified; N95.1 Menopausal and female climacteric states; Z23 Encounter for immunization

== ENCOUNTER → 2025-11-23 14:49 | Outpatient (BNVA) | payer BC, SELFPAY | PROVIDERS: PCP Internal Medicine; Visit Provider Student in an Organized Health Care Education/Training Program | DX: Z76.89 Persons encountering health services in other specified circumstances (principal); Z23 Encounter for immunization; E78.00 Pure hypercholesterolemia, unspecified; E55.9 Vitamin D deficiency, unspecified; D50.9 Iron deficiency anemia, unspecified; N95.1 Menopausal and female climacteric states | CPT/HCPCS: 90471; 90656; 96127 ==